=== PATIENT | male | born 1955 | race Caucasian/White ===

== ENCOUNTER 2018-09-25 13:23 | Emergency (ER) | payer OTHER ==
[2018-09-25 13:54] LABS: APPEARANCE,URINE SLIGHTLY-CLOUDY; BILIRUBIN,URINE NEGATIVE (NEGATIVE); COLOR,URINE YELLOW; GLUCOSE, URINE NEGATIVE (NEGATIVE); KETONES,URINE NEGATIVE (NEGATIVE); LEUKOCYTE ESTERASE,URINE NEGATIVE (NEGATIVE); NITRITE,URINE NEGATIVE (NEGATIVE); PROTEIN,URINE NEGATIVE (NEGATIVE); URINE SPECIFIC GRAVITY 1.023; UROBILINOGEN,URINE NEGATIVE mg/dL (<2.0)
[2018-09-25] MEDS ORDERED: KETOROLAC TROMETHAMINE INJ/PF 30 MG/1 ML SDV IV ONE ×2 (14:28→19:02)
--- NOTE | 2018-09-25 14:29 | ER Document Report ---
ED Medical Screen (RME) - General Chief Complaint: Flank Pain Stated Complaint: FLANK PAIN Time Seen by Provider: 09/25/18 14:25 Notes: 63-year-old male patient reports onset this morning about 6:30 AM of left flank pain which has been getting progressively worse throughout the day. He does have a history of kidney stones, most recently was about 2 years ago, but he thinks he may have passed small stone about 2 weeks ago. At this time he is holding his side and pacing the floor, bent over. I have greeted and performed a rapid initial assessment of this patient. A comprehensive ED assessment and evaluation of the patient, analysis of test results and completion of the medical decision making process will be conducted by additional ED providers. TRAVEL OUTSIDE OF THE [place] IN LAST 30 DAYS: No - Related Data Allergies/Adverse Reactions: codeine Allergy (Verified 09/25/18 13:24) oxycodone Allergy (Verified 09/25/18 13:24) Past Medical History - Social History Chew tobacco use (# tins/day): No Frequency of alcohol use: Occasional Drug Abuse: None Renal/ Medical History: Denies: Hx Peritoneal Dialysis GI Medical History: Reports: Hx Gastroesophageal Reflux Disease Past Surgical History: Reports: Hx Cholecystectomy Physical Exam - Vital signs Vitals: Temp Pulse Resp BP Pulse Ox 98.1 F 62 20 148/93 H 98 09/25/18 13:24 09/25/18 13:24 09/25/18 13:24 09/25/18 13:24 09/25/18 13:24 Course - Vital Signs Vital signs: Temp Pulse Resp BP Pulse Ox 98.1 F 62 20 148/93 H 98 09/25/18 13:24 09/25/18 13:24 09/25/18 13:24 09/25/18 13:24 09/25/18 13:24
[2018-09-25 14:55] LABS: ABSOLUTE BASOPHILS # (AUTO) 0.1 10^3/uL (0.0-0.2); ABSOLUTE EOSINOPHILS # (AUTO) 0.1 10^3/uL (0.0-0.6); ABSOLUTE LYMPHOCYTES (AUTO) 1.2 10^3/uL (0.5-4.7); ABSOLUTE MONOCYTES (AUTO) 0.9 10^3/uL (0.1-1.4); ABSOLUTE NEUT (AUTO) 8.1 10^3/uL (1.7-8.2); BASOPHILS % (AUTO) 0.6 % (0-2); EOSINOPHILS % (AUTO) 1.1 % (0-6); HEMATOCRIT 39.3 % (37.9-51.0); HEMOGLOBIN 13.7 g/dL (13.5-17.0); LYMPHOCYTES % (AUTO) 11.6 % (13-45); MEAN CORPUSCULAR HEMOGLOBIN 29.9 pg (27.0-33.4); MEAN CORPUSCULAR HGB CONC 34.8 g/dL (32.0-36.0); MEAN CORPUSCULAR VOLUME 86 fl (80-97); MONOCYTES % (AUTO) 8.5 % (3-13); PLATELET COUNT 316 10^3/uL (150-450); RED BLOOD COUNT 4.57 10^6/uL (4.35-5.55); RED CELL DISTRIBUTION WIDTH 13.8 % (11.5-14.0); SEGMENTED NEUTROPHILS % (AUTO) 78.2 % (42-78); TOTAL CELLS COUNTED % (AUTO) 100 %; WHITE BLOOD COUNT 10.4 10^3/uL (4.0-10.5)
[2018-09-25 15:16] LABS: ALANINE AMINOTRANSFERASE 32 U/L (21-72); ALBUMIN 4.5 g/dL (3.5-5.0); ALKALINE PHOSPHATASE 43 U/L (38-126); ANION GAP 11 (5-19); ASPARTATE AMINO TRANSFERASE 32 U/L (17-59); BILIRUBIN,DIRECT 0.3 mg/dL (0.0-0.4); BILIRUBIN,TOTAL 0.3 mg/dL (0.2-1.3); BLOOD UREA NITROGEN 28 mg/dL (7-20); CALCIUM 10.7 mg/dL (8.4-10.2); CARBON DIOXIDE 27 mmol/L (22-30); CHLORIDE 103 mmol/L (98-107); GLUCOSE 114 mg/dL (75-110); POTASSIUM 5.3 mmol/L (3.6-5.0); SODIUM 140.5 mmol/L (137-145); TOTAL PROTEIN 7.4 g/dL (6.3-8.2)
[2018-09-25] MEDS: NORMAL SALINE 1000 ML 1,000 ML IV PRN ×2 (16:54→17:54)
--- NOTE | 2018-09-25 16:57 | RADIOLOGY REPORT (SQ) ---
EXAM DESCRIPTION: CT ABD/PELVIS NO ORAL OR IV COMPLETED DATE/TIME: 09/25/2018 4:43 pm REASON FOR STUDY: right flank pain, h/o stone, new decr kidney fxn COMPARISON: None. TECHNIQUE: CT scan of the abdomen and pelvis performed without intravenous or oral contrast. Images reviewed with lung, soft tissue, and bone windows. Reconstructed coronal and sagittal MPR images revi ewed. All images stored on PACS. All CT scanners at this facility use dose modulation, iterative reconstruction, and/or weight based d osing when appropriate to reduce radiation dose to as low as reasonably achievable (ALARA). [facility]: Dose Right [facility]: CareDose [facility]: Dose Right [facility]: Teradose 4D [facility]: [employer] RADIATION DOSE: CT Rad equipment meets quality standard of care and radiation dose reduction techniq ues were employed. CTDIvol: 14.8 mGy. DLP: 855 mGy-cm.mGy. LIMITATIONS: None. FINDINGS: LOWER CHEST: No significant findings. No nodules or infiltrates. NON-CONTRASTED LIVER, SPLEEN, ADRENALS: Evaluation limited by lack of IV contrast. No identified sign ificant masses. PANCREAS: No masses. No peripancreatic inflammatory changes. GALLBLADDER: Surgically absent. RIGHT KIDNEY AND URETER: No suspicious masses. Assessment limited by lack of IV contrast. No signif icant calcifications. No hydronephrosis or hydroureter. LEFT KIDNEY AND URETER: No suspicious masses. Assessment limited by lack of IV contrast. 2 mm lower pole calyceal calculus. 4 mm calculus in the distal ureter at the ureteral vesicular junction. Mo derate hydronephrosis and hydroureter. Edematous stranding in the perinephric soft tissues. AORTA AND RETROPERITONEUM: No aneurysm. No retroperitoneal masses or adenopathy. BOWEL AND PERITONEAL CAVITY: No obvious masses or inflammatory changes. No free fluid. APPENDIX: Surgically absent. PELVIS, BLADDER, AND ABDOMINAL WALL:No abnormal masses. No free fluid. Bladder normal. BONES: No significant findings. OTHER: No other significant finding. IMPRESSION: 1. 4 MM OBSTRUCTING CALCULUS IN THE DISTAL LEFT URETER AT THE URETERAL VESICULAR JUNCTION. 2 MM LOWE R POLE CALYCEAL CALCULUS IN THE LEFT KIDNEY. 2. NO OTHER SIGNIFICANT OR ACUTE PROCESS IN THE ABDOMEN OR PELVIS. COMMENT: Quality ID # [id number]: Final reports with documentation of one or more dose reduction techniques (e.g., Automated exposure control, adjustment of the mA and/or kV according to patient size, use of iterative reconstruction technique) TECHNICAL DOCUMENTATION: JOB ID: [id number] [employer]- All Rights Reserved Reading location - IP/workstation name: [email or web address]
[2018-09-25] MEDS ORDERED: OXYCODONE-ACETAMINOPHEN 5-325 MG TABLET PO ONE (16:59)
[2018-09-25] MEDS ORDERED: TRAMADOL HCL 50 MG TABLET PO ONE (17:46)
[2018-09-25 18:57] VITALS: BP 122/69
--- NOTE | 2018-09-25 21:24 | ER Document Report ---
Entered by HUNTER MARTINES SCRIBE 09/25/18 [id number] Acting as scribe for:PA SCHILLING DO ED General - General Chief Complaint: Flank Pain Stated Complaint: FLANK PAIN Time Seen by Provider: 09/25/18 14:25 Mode of Arrival: Ambulatory Information source: Patient Notes: Patient is a 63 year old male presenting to the emergency department complaining of left flank pain onset onset 0630 this morning. Patient believes he has multiple kidney stones and states his pain feels identical to his past kidney stones further stating the pain starts at his left flank and radiates into his left lower abdomen. He also complains of urinary retention. He denies any testicular pain or swelling, pain with urination, vomiting, diarrhea, fevers, chills or a history of kidney issues. Patient states he believes he passed a kidney stone 2.5 weeks ago but prior to that episode, has not passed one in 6 years. TRAVEL OUTSIDE OF THE [place] IN LAST 30 DAYS: No - Related Data Allergies/Adverse Reactions: codeine Allergy (Verified 09/25/18 13:24) oxycodone Allergy (Verified 09/25/18 13:24) Past Medical History - General Information source: Patient - Social History Smoking Status: Unknown if Ever Smoked Chew tobacco use (# tins/day): No Frequency of alcohol use: Occasional Drug Abuse: None Family History: None Patient has suicidal ideation: No Patient has homicidal ideation: No Renal/ Medical History: Reports: Hx Kidney Stones GI Medical History: Reports: Hx Gastroesophageal Reflux Disease Past Surgical History: Reports: Hx Cholecystectomy Review of Systems - Review of Systems Constitutional: No symptoms reported EENT: No symptoms reported Cardiovascular: No symptoms reported Respiratory: No symptoms reported Gastrointestinal: No symptoms reported Genitourinary: See HPI, Flank pain, Retention -: Yes All other systems reviewed and negative Physical Exam - Vital signs Vitals: Temp Pulse Resp BP Pulse Ox 98.1 F 62 20 148/93 H 98 09/25/18 13:24 09/25/18 13:24 09/25/18 13:24 09/25/18 13:24 09/25/18 13:24 - Notes Notes: GENERAL: Alert, interacts well. No acute distress. HEAD: Normocephalic, atraumatic. EYES: Pupils equal, round, and reactive to light. Extraocular movements intact. ENT: Oral mucosa moist, tongue midline. NECK: Full range of motion. Supple. Trachea midline. LUNGS: Clear to auscultation bilaterally, no wheezes, rales, or rhonchi. No respiratory distress. HEART: Regular rate and rhythm. No murmurs, gallops, or rubs. ABDOMEN: Soft, non-tender, no guarding, rigidity, or rebound. Non-distended. B owel sounds present in all 4 quadrants. EXTREMITIES: Moves all 4 extremities spontaneously. NEUROLOGICAL: Alert and oriented x3. Normal speech. PSYCH: Normal affect, normal mood. SKIN: Warm, dry, normal turgor. No rashes or lesions noted. GI/: No significant swelling or erythema to the testicles bilaterally, non- tender to palpation. Course - Re-evaluation Re-evalutation: 09/25/18 18:49 CBC unremarkable, CMP shows elevated potassium of 5.3, an elevated at 28, creatinine elevated at 1.47, labs on this can patient to compare to, urinalysis shows 1 RBC but the patient does have a significant history of kidney stones and states this feels exactly the same so we will perform a CT scan of the abdomen to make sure there is no sign of market obstruction of the ureter that may be causing the renal failure. Renal protocol was performed and showed 4 mm calculus in the distal ureter at the ureterovesicular junction on the left. There is moderate hydronephrosis and hydroureter. There is a 2 mm low pole calyceal calculus as well. Patient's pain did increase while he was sitting in the emergency department, patient's pain was initially relieved by Toradol however since the pain returned and he is allergic to codeine, oxycodone and Percocet he is concerned about trying any other narcotics so we will try Ultram instead. Patient will be discharged to home with advice on using ibuprofen, acetaminophen and Ultram as well as Flomax and Pyridium. Patient was also educated on a study that was recently performed that showed that having sex once a day increases the rate at which the stone will pass. - Vital Signs Vital signs: Temp Pulse Resp BP Pulse Ox 98.6 F 80 16 122/69 98 09/25/18 18:56 09/25/18 18:56 09/25/18 18:56 09/25/18 18:56 09/25/18 13:24 - Laboratory Result Diagrams: 09/25/18 14:41 09/25/18 14:41 Laboratory results interpreted by me: 09/25/18 09/25/18 14:41 14:41 Seg Neutrophils % 78.2 H Lymphocytes % 11.6 L Potassium 5.3 H BUN 28 H Creatinine 1.47 H Est GFR ( Amer) 59 L Est GFR (Non-Af Amer) 49 L Glucose 114 H Calcium 10.7 H Discharge - Discharge Clinical Impression: Calculus of distal left ureter, Hydronephrosis, left Acute renal failure Qualifiers: Acute renal failure type: unspecified Qualified Code(s): N17.9 - Acute kidney failure, unspecified Condition: Stable Disposition: HOME, SELF-CARE Additional Instructions: Today you were diagnosed with a kidney stone. It is 4 mm and it is about to drop into your bladder. There are many things that we do to try and help with the pain from kidney stones. You may take ibuprofen 800 mg every 8 hours to help with the pain. Do not do this for more than 4 days. You may also take acetaminophen 1000 mg every 6 hours as needed for pain. If neither of these are completely controlling your pain you may use the tramadol as prescribed but no more often than every 6 hours. You should take the Flomax 1 pill once a day for the next 7 days or until the pain stops. If the pain stopped sooner than 7 days you do not need to new taking it. You may also use Pyridium also known as Azo. It will numb your kidneys, ureter and bladder. It will turn your urine orange. Do not be concerned when your urine turns bright orange. We also discussed a recent study that says having sex once a day will increase the speed with which a stone passes. Today we also talked about the fact that you have some signs of damage to your kidneys. You we gave you fluids to help with this and I recommend that she drink plenty of fluids. Please have your primary care physician repeat your kidney function tests in approximately 1 week to ensure that your kidney function is improving. Prescriptions: Tramadol HCl [Ultram 50 mg Tablet] 50 mg PO Q6HP PRN #14 tablet PRN Reason: Phenazopyridine HCl [Pyridium 200 mg Tablet] 200 mg PO TIDP PRN #15 tablet PRN Reason: Tamsulosin HCl [Flomax 0.4 mg Cap.sr] 0.4 mg PO DAILY #7 cap.sr.24h I personally performed the services described in the documentation, reviewed and edited the documentation which was dictated to the scribe in my presence, and it accurately records my words and actions.
== END 2018-09-25 19:13 | disposition home or self-care (01) ==
LOC: ER 13:23
DX: N13.2 Hydronephrosis with renal and ureteral calculous obstruction (principal); N17.9 Acute kidney failure, unspecified; R10.9 Unspecified abdominal pain; R33.9 Retention of urine, unspecified; Z87.442 Personal history of urinary calculi; Z88.6 Allergy status to analgesic agent; Z90.49 Acquired absence of other specified parts of digestive tract
CPT/HCPCS: 96376; 99284; 96361; 96374; 36415; 85025; 80053; 81001; 74176; J1885; J7030